=== PATIENT | female | born 1990 | race Caucasian/White ===

== ENCOUNTER 2024-04-16 14:57 | Emergency (ER) | payer OTHER, SELFPAY ==
--- NOTE | ~2024-04-16 | US_ITS ---
EXAMINATION: US OB <= 14 weeks fetus DATE: 04/16/2024 21:28 INDICATION: Vaginal bleeding. . TECHNIQUE: Real-time transabdominal pelvic ultrasound was performed. COMPARISON: None. FINDINGS: The uterus measures 12.3 x 8.2 x 9.3 cm. There is an intrauterine gestational sac. A yolk sac is iden tified. The crown rump length measures 3.5 cm, which correlates with an estimated gestational age of 10 weeks and 3 day(s) (+/-) 5 day(s). heart motion is identified measuring 171 beats per minute (bpm) by M-mode Doppler. There is a small subchorionic hematoma measuring 1.1 x 1.0 x 0.5 cm . The ovaries are not visualized. There is no free fluid in the pelvis. IMPRESSION: 1. Single living intrauterine gestation with estimated date of delivery of 11/09/2024. 2. Small subchorionic hematoma. Reviewed, dictated and finalized at location A. RVISOR HOUSECLEANER IMPRESSION: 1. Single living intrauterine gestation with estimated date of delivery of 10/25. 2. Small subchorionic hematoma.
[2024-04-16 15:01] VITALS: BP 145/92; PULSE 88; RESP 20; TEMP 36.9; O2SAT 99
[2024-04-16 15:15] LABS: Basophils Percent Auto 0.1 % (0.2-1.2); Eosinophils Percent Auto 0.4 % (0-4.4); Hematocrit 40.3 % (37.0-47.0); Hemoglobin 14.2 g/dL (12.0-15.0); Immature Granulocyte Absolute 0.03 K/mm3 (0.00-0.031); Immature Granulocyte Percent A 0.4 % (0-0.5); Lymphocytes Absolute Auto 2.18 K/mm3 (0.9-3.2); Lymphocytes Percent Auto 29.7 % (18.3-44.2); Mean Corpuscular HGB Conc 35.2 g/dl (32-36); Mean Corpuscular Hemoglobin 31.5 pg (26-34); Mean Corpuscular Volume 89.4 fl (80-100); Mean Platelet Volume 10.1 fl (7.4-10.4); Monocytes Absolute Auto 0.6 K/mm3 (0.1-0.6); Neutrophils Absolute Auto 4.5 K/mm3 (1.3-6.7); Neutrophils Percent Auto 61.4 % (45.5-73.1); Platelet Count Result 186 k/mm3 (150-375); Red Blood Count 4.51 M/mm3 (4.2-5.4); Red Cell Distribution Width 13.1 % (11.5-14.5); White Blood Count 7.4 K/mm3 (4.5-10.0)
[2024-04-16 15:27] LABS: INR 0.9; Prothrombin Time 12.4 Seconds (11.1-14.7)
[2024-04-16 15:28] LABS: Partial Thromboplastin Time 27.1 Seconds (22.3-36.8)
[2024-04-16 18:54] VITALS: BP 123/87; PULSE 94; RESP 18; TEMP 36.9; O2SAT 100
--- NOTE | 2024-04-16 19:54 | ED.PREGNANCY ---
HPI - General Chief complaint: Vaginal Bleeding Stated complaint: vag bleed-preg Time Seen by Provider: 04/16/24 19:40 Source: patient Mode of arrival: ambulatory Limitations: no limitations History of Present Illness HPI Narrative: Patient is a 33-year-old female who presents the ED with report of vaginal bleeding. Patient is and approximately 10 weeks gestation. Has had confirmed IUP. Sees Dr. Arevalo. Reports today around 230pm, she used the restroom and had a large amount of vaginal bleeding. She states since then she has had some brown vaginal spotting with wiping. She reports some intermittent lower abdominal cramping, denies significant pain. Reports intermittent nausea, denies vomiting. Denies fevers. Denies dysuria. Related Data Home Medications Medication Instructions Recorded Confirmed desvenlafaxine 50 mg 50 mg PO DAILY 03/17/24 04/14/24 tablet,extended release 24 hr Allergies Allergy/AdvReac Type Severity Reaction Status Date / Time Penicillins Allergy Severe Difficulty Verified 04/14/24 08:50 Breathing gabapentin Allergy Intermediate Vomiting Verified 04/14/24 08:50 Review of Systems Review of Systems: All systems reviewed & are unremarkable except as noted in HPI. All systems reviewed & are unremarkable except as noted in HPI and below PMFSH Past Medical History Medical History Allergies Anxiety Suppression of menses Family History Family History Mother Depression Asthma Father Depression Social History Social History Smoking status: Former smoker Alcohol intake: never Substance use: never Substance use type: does not use Do You Feel Safe in your Home?: Yes Lack of Transportation: No Lack of Food: Never True Current Housing: I Have Housing Concerned About Future Housing: No Difficulty Paying Gas/Electric Bills: No Difficulty Paying for Meds: No Currently Unemployed: No Education: Trade/Vocational Certificate Difficulty w/ Childcare or Family Care: No Living arrangements: with family Occupation/Education: unemployed Gender identity (if verbalized by the patient): Female Exam Narrative: GENERAL: Well appearing, well-nourished, non-toxic, in no acute distress. HEAD: Normocephalic, atraumatic. RESPIRATORY: Airway patent, respirations nonlabored. Clear to auscultation bilaterally, no rales, rhonchi, wheezing. CARDIOVASCULAR: Regular rate and rhythm without murmurs, rubs, or gallops. ABDOMINAL: Soft, mild tenderness throughout lower abdomen, worst in LLQ, nondistended. Normoactive BS. MUSCULOSKELETAL: Moves all extremities. No gross deformities. SKIN: Warm, dry, normal color. NEURO: A&O X3. Speech clear. PSYCHIATRIC: Appropriate mood and affect. Normal interaction. Course Vital Signs Vital signs: Vital Signs Temperature 98.5 F 04/16/24 15:01 Pulse Rate 88 04/16/24 15:01 Respiratory Rate 20 04/16/24 15:01 Blood Pressure 145/92 H 04/16/24 15:01 Pulse Oximetry 99 04/16/24 15:01 Temperature 98.2 F 04/16/24 22:14 Pulse Rate 92 04/16/24 22:14 Respiratory Rate 17 04/16/24 22:14 Blood Pressure 121/86 04/16/24 22:14 Pulse Oximetry 100 04/16/24 22:14 MDM - OB/Uterine Contractions MDM Narrative Medical decision making narrative: Vital signs are stable upon arrival. Patient reports bleeding is slowing down, now more of brown vaginal spotting. and 10 weeks. Confirmed IUP. Laboratory studies are reassuring. No leukocytosis. Stable H&H. Blood type is O positive, no indication for RhoGAM. Beta hcg [id number]. UA w/o evidence of infection. OB US obtained and showing live IUP, good FHT, does show small subchorionic hematoma. Likely cause of bleeding today. Discussed lab and imaging results, reassuring ultrasound with patient. Feel she is safe for discharge home at this time with close outpatient OB follow-up. Recommended follow-up in the office, pelvic rest, strict return precautions. She is in agreement with plan. Feels comfortable w/ D/C home. Discharged in stable condition. Medical Records Attestation: I reviewed the patient's medical records. Lab Data Attestation: I reviewed the patient's lab results. 04/16/24 15:09 04/16/24 19:42 Labs: Lab Results 11/21/24 11/21/24 11/21/24 Range/Units 15:09 19:42 21:37 WBC 7.4 (4.5-10.0) K/mm3 RBC 4.51 (4.2-5.4) M/mm3 Hgb 14.2 (12.0-15.0) g/dL Hct 40.3 (37.0-47.0) % MCV 89.4 (80-100) fl MCH 31.5 (26-34) pg MCHC 35.2 (32-36) g/dl RDW 13.1 (11.5-14.5) % Plt Count 186 (150-375) k/mm3 MPV 10.1 (7.4-10.4) fl Immature Gran % (Auto) 0.4 (0-0.5) % Neut % (Auto) 61.4 (45.5-73.1) % Lymph % (Auto) 29.7 (18.3-44.2) % Hayes % (Auto) 8.0 (2.6-8.5) % Eos % (Auto) 0.4 (0-4.4) % Baso % (Auto) 0.1 L (0.2-1.2) % Lymph # (Auto) 2.18 (0.9-3.2) K/mm3 Hayes # (Auto) 0.6 (0.1-0.6) K/mm3 Eos # (Auto) 0.0 (0-0.3) K/mm3 Baso # (Auto) 0.0 (0.0-0.1) K/mm3 Abs Immat Gran (auto) 0.03 (0.00-0.031) K/mm3 Absolute Neuts (auto) 4.5 (1.3-6.7) K/mm3 Absolute Nucleated RBC 0.000 (0.0-0.012) K/mm3 Nucleated RBC % 0.0 (0.0-0.2) % PT 12.4 (11.1-14.7) Seconds INR 0.9 APTT 27.1 (22.3-36.8) Seconds Sodium 135 L (137-145) mmol/L Potassium 3.6 (3.4-5.0) mmol/L Chloride 108 H (98-107) mmol/L Carbon Dioxide 21 L (22-30) mmol/L Anion Gap 6 (4-12) mmol/L BUN 7 (7-17) mg/dL Creatinine 0.50 L (0.7-1.0) mg/dL Estim Creat Clear Calc Not Reportable Estimated GFR > 60 (59 - ) Glucose 110 (65-110) mg/dL Calcium 8.6 (8.4-10.2) mg/dL Total Bilirubin 0.3 (0.2-1.3) mg/dL AST 21 (14-36) U/L ALT 13 (6-35) U/L Alkaline Phosphatase 55 (38-126) U/L Total Protein 7.0 (6.3-8.2) g/dL Albumin 3.6 (3.5-5.1) g/dL Beta HCG, Quant 724907.00 mIU/ML Urine Color Yellow (Yellow) Urine Appearance Clear (Clear) Urine pH 5.5 (5.0-9.0) Ur Specific [place] 1.026 (1.001-1.035) Urine Protein Negative (Negative) mg/dL Urine Glucose (UA) Trace H (Negative) mg/dL Urine Ketones Trace H (Negative) mg/dL Ur Blood (Man) 2+ H (Negative) Urine Nitrate Negative (Negative) Urine Bilirubin Negative (Negative) Urine Urobilinogen 0.2 (<2.0) mg/dL Leukocyte Esterase Rfl Negative (Negative) GEORGES/UL Urine RBC 3-5 H (0-2) /hpf Urine WBC 0-5 (0-3) /hpf Ur Squamous Epith Cells Occasional (Few) /hpf Urine Bacteria None seen /hpf Urine Casts 0-2 Blood Type O Positive Antibody Screen Negative Screen Not Reportable Baby's Blood Type Not Reportable Baby's JACLYN Not Reportable Doses of RhIg Required 0 Imaging Data Attestation: I personally reviewed and interpreted this imaging study as follows: Radiologist's impression: ITS Impressions Ultrasound 04/16/24 21:40 IMPRESSION: 1. Single living intrauterine gestation with estimated date of delivery of 11/09/2024. 2. Small subchorionic hematoma. Discharge Plan Discharge Clinical Impression: 10 weeks gestation of , Subchorionic hematoma Patient Disposition: Home, Self-Care Condition: Stable Instructions: Antibiotic Form, Subchorionic Hemorrhage (ED), at 7 to 10 Weeks (ED) Additional Instructions: Your ultrasound here was reassuring. It did show evidence of a subchorionic hematoma which is a small blood collection on the outside of the amniotic sac. Continue to monitor bleeding. Recommend pelvic rest until seen by OBGYN, no heavy lifting or strenuous activity, intercourse, tampons. Follow-up closely with your OBGYN for further evaluation. Return to the ED if you experience worsening or severe bleeding, severe pain, passing out, unable to keep down food or drink, or any other symptoms of concern. Prescriptions: No Action desvenlafaxine 50 mg tablet extended release 24 hr 50 mg PO DAILY ondansetron HCl 4 mg tablet 4 mg PO Q6H PRN (Reason: nausea and vomiting) Qty: 30 1RF Follow-up/Referrals: PHYSICIAN NOT ON STAFF,NONSTAFF [Non-Staff] - Gagan Arevalo MD [Physician] - (OBGYN) Time of Disposition: 22:05
[2024-04-16 19:58] LABS: Alanine Aminotransferase 13 U/L (6-35); Albumin Level 3.6 g/dL (3.5-5.1); Alkaline Phosphatase 55 U/L (38-126); Anion Gap 6 mmol/L (4-12); Aspartate Amino Transferase 21 U/L (14-36); Bilirubin,Total 0.3 mg/dL (0.2-1.3); Blood Urea Nitrogen 7 mg/dL (7-17); Calcium 8.6 mg/dL (8.4-10.2); Carbon Dioxide 21 mmol/L (22-30); Chloride 108 mmol/L (98-107); Estimated Glomerular Filt Rate > 60; Glucose 110 mg/dL (65-110); Potassium 3.6 mmol/L (3.4-5.0); Sodium 135 mmol/L (137-145)
[2024-04-16 21:50] LABS: Add Urine Microscopic? YES; Appearance Urine Clear (Clear); Bacteria Urine None Seen /hpf; Bilirubin Urine Negative (Negative); Blood Urine 2+ (Negative); Color Urine Yellow (Yellow); Glucose Urine UA Trace mg/dL (Negative); Ketones Urine Trace mg/dL (Negative); Leukocyte Esterase Ur Negative LEU/UL (Negative); Nitrate Urine Negative (Negative); Non Pathogenic Casts 0-2; Protein Urine Negative (Negative); Specific Grav Ur 1.026 (1.001-1.035); Squamous Epithelial Cell Urine Occasional /hpf (Few); Urobilinogen Urine 0.2 mg/dL (<2.0); WBC Urine 0-5 /hpf (0-3); pH Urine 5.5 (5.0-9.0)
[2024-04-16] MEDS: ACETAMINOPHEN 500 MG TABLET 1000 MG PO (22:05)
[2024-04-16 22:14] VITALS: BP 121/86; PULSE 92; RESP 17; TEMP 36.8; O2SAT 100
== END 2024-04-16 22:16 | disposition home or self-care (01) ==
PROVIDERS: Emergency Medicine; Emergency Provider Physician Assistant
DX: O20.8 Other hemorrhage in early pregnancy (principal); O99.341 Other mental disorders complicating pregnancy, first trimester; F41.9 Anxiety disorder, unspecified; Z87.891 Personal history of nicotine dependence; Z3A.10 10 weeks gestation of pregnancy
CPT/HCPCS: 36415; 76801; 80053; 81001; 84702; 85025; 85461; 85610; 85730; 86850; 86900; 86901; 99284; A9270

== ENCOUNTER 2024-05-05 09:59 | Outpatient (CLI) | payer OTHER, SELFPAY ==
--- NOTE | ~2024-05-05 | US_ITS ---
EXAMINATION: US OB <= 14 weeks fetus DATE: 05/05/2024 10:20 INDICATION: Subchorionic hematoma TECHNIQUE: Real-time pelvic ultrasound utilizing both a transvaginal and transabdominal probe was pe rformed. The interpreting radiologist was not present for the study. COMPARISON: None. FINDINGS: The uterus measures 14.5 x 8.1 x 12.0 cm. There is an intrauterine gestational sac. A yolk sac and f etal pole are identified. The crown rump length measures 7.2 cm, which is concordant within 2 days of the previously estimated gestational age of 13 weeks and 1 days. heart motion is identified me asuring 152 beats per minute (bpm) by M-mode Doppler. The placenta is posterior with a small internal anechoic placental sutherland. Increase in size of a now 4. 0 x 1.4 cm subchorionic hematoma along the cephalad margin of the placenta on the longitudinal images of the uterus. The placenta is low-lying with caudal margin extending to within 1 cm of the internal cervical os. Normal cervical length measures approximately 3.5 cm. The right ovary is not visualized. The left ovary measures 2.4 x 1.7 x 1.7 cm. Vascular flow identifi ed at the left ovary on color Doppler. There is no free fluid in the pelvis. IMPRESSION: 1. Single living fetus with heart rate of 152 bpm. 2. [place]-rump length of 7.2 cm which is concordant within 2 days of the previously estimated gestatio nal age of 13 weeks and 1 day with ultrasound estimated date of delivery (SAMUEL) of 11/09/2024. 3. Low-lying posterior placenta with caudal margin 1 cm from the internal cervical os and interval in crease in size of a still relatively small 4.0 x 1.4 cm subchorionic hematoma along the cephalad dameon in of the placenta. Reviewed, dictated and finalized at location A. EM SAFETY ENGINEER IMPRESSION: 1. Single living fetus with heart rate of 152 bpm. 2. [place]-rump length of 7.2 cm which is concordant within 2 days of the previou sly estimated gestational age of 13 weeks and 1 day with ultrasound estimated d ate of delivery (SAMUEL) of 11/09/2024. 3. Low-lying posterior placenta with caudal margin 1 cm from the internal cervi whitney os and interval increase in size of a still relatively small 4.0 x 1.4 cm s ubchorionic hematoma along the cephalad margin of the placenta.
== END 2024-05-05 10:00 | disposition home or self-care (01) ==
PROVIDERS: Visit Provider Student in an Organized Health Care Education/Training Program
DX: O26.851 Spotting complicating pregnancy, first trimester (principal); O41.8X10 Other specified disorders of amniotic fluid and membranes, first trimester, not applicable or unspecified; O46.8X1 Other antepartum hemorrhage, first trimester; Z3A.13 13 weeks gestation of pregnancy
CPT/HCPCS: 76801

== ENCOUNTER 2024-05-25 12:39 | Emergency (ER) | payer OTHER, SELFPAY ==
[2024-05-25 12:54] VITALS: BP 123/83; PULSE 89; RESP 16; TEMP 37.1; O2SAT 99
--- NOTE | 2024-05-25 13:16 | ED.URI ---
HPI - URI/Sore Throat General Chief Complaint: Upper Respiratory Infection Stated Complaint: Sinus Source: patient, RN notes reviewed and old records reviewed Mode of arrival: ambulatory Limitations: no limitations History of Present Illness HPI Narrative: Patient presents accompanied by her son. She is complaining of fever and productive cough that has been present for a couple of weeks, getting worse instead of better. She reports that fever has been intermittent over the past couple of days. She says she has not taken her temperature but believes this somewhere around 102. She reports the cough is minimally productive, wet sounding. She does report chills and sweats, particularly at night. She denies any respiratory distress. She is able speak in full sentence without difficulty. She does report lack of energy. Says she has been taking [id number] medications with minimal relief Related Data Home Medications ?Medication ?Instructions ?Recorded ?Confirmed ?Last Taken ?Type desvenlafaxine 50 mg 50 mg PO DAILY 03/17/24 05/12/24 Unknown History tablet,extended release 24 hr Allergies Allergy/AdvReac Type Severity Reaction Status Date / Time Penicillins Allergy Severe Difficulty Verified 05/25/24 12:50 Breathing gabapentin Allergy Intermediate Vomiting Verified 05/25/24 12:50 venom-wasp AdvReac Intermediate Other Verified 05/25/24 12:50 Review of Systems Review of Systems: All systems reviewed & are unremarkable except as noted in HPI and below Constitutional: Constitutional: Reports no additional constitutional complaints, Reports chills, Reports excessive sweating, Reports fever(s) and Reports lethargy ENT: Reports system reviewed and no additional complaints, except as documented Cardiovascular: Cardiovascular: Reports no additional cardiovascular complaints Respiratory: Respiratory: Reports no additional respiratory complaints, Reports change in phlegm color, Reports chest congestion, Reports excessive phlegm production and Reports pain with cough Gastrointestinal: Gastrointestinal: Reports no additional gastrointestinal complaints PMFSH Past Medical History Medical History (Updated 05/25/24 @ 13:36 by Josee Noel APRN) Autism Suppression of menses Anxiety Allergies Family History Family History Mother Depression Asthma Father Depression Social History Social History Smoking status: Former smoker Alcohol intake: never Substance use: never Substance use type: does not use Do You Feel Safe in your Home?: Yes Lack of Transportation: No Lack of Food: Never True Current Housing: Decline to Answer Concerned About Future Housing: Decline to Answer Difficulty Paying Gas/Electric Bills: Decline to Answer Difficulty Paying for Meds: Decline to Answer Currently Unemployed: Decline to Answer Education: Decline to Answer Difficulty w/ Childcare or Family Care: Decline to Answer Living arrangements: with family Occupation/Education: unemployed Gender identity (if verbalized by the patient): Female Comments At the time of my signature, I reviewed and agree with the nursing past medical, surgical, social, and family history. There is no relevant family history pertinent to the patient complaint. Exam Const: General: cooperative, no acute distress, alert and awake Orientation/consciousness: oriented to person, oriented to place and oriented to time HENMT: Head: normal to inspection Mouth: Yes moist mucous membranes Resp: Effort & Inspection: normal respiratory effort and able to speak in complete sentences Auscultation: clear to auscultation bilaterally, crackles on the right at the base, no rales, no rhonchi and no wheezes Cardio: Palpation: normal PMI Rate: regular rate Rhythm: regular rhythm Heart sounds: S1 normal heart sound present and S2 normal heart sound present Neuro: General: oriented to person, oriented to place and oriented to time Cranial nerves: Yes CN's II-XII intact bilaterally Psych: Appearance: grossly normal Thought process: Normal thought process present Insight: Good insight present (Psych) Judgement: Good judgement present (Psych) Course Course Level of Care: Express Care Visit Vital Signs Vital signs: Vital Signs Temperature 98.7 F 05/25/24 12:54 Pulse Rate 89 05/25/24 12:54 Respiratory Rate 16 05/25/24 12:54 Blood Pressure 123/83 05/25/24 12:54 Pulse Oximetry 99 05/25/24 12:54 Oxygen Delivery Room Air 05/25/24 12:54 Temperature 98.7 F 05/25/24 12:54 Pulse Rate 89 05/25/24 12:54 Respiratory Rate 16 05/25/24 12:54 Blood Pressure 123/83 05/25/24 12:54 Pulse Oximetry 99 05/25/24 12:54 Oxygen Delivery Room Air 05/25/24 12:54 Reviewed MDM - URI/Sore Throat MDM Narrative Medical decision making narrative: Patient with multiple sick children at home, 1 is with her today. She does have history and exam consistent with atypical pneumonia this prevalent within the community. Discharge instructions reviewed with patient, as well as provided in writing per nursing staff. The instructions also include specific and strict return/GO TO THE ER as well as f/u information. All questions have been answered, and the patient deny any further questions with discharge and discharge plan. Some parts of this dictation were generated by voice recognition software and may contain typographical and/or grammatical inaccuracies. Differential Diagnosis Differential diagnosis: Likely upper respiratory infection, otitis media, sinusitis, viral infection, bronchitis, influenza and pharyngitis Medical Records Attestation: I reviewed the patient's medical records. Discharge Plan Discharge Clinical Impression: Atypical pneumonia Patient Disposition: Home, Self-Care Condition: Stable Instructions: Antibiotic Form Additional Instructions: Take medication as prescribed. Follow with primary care provider. Emergency department for new or worse symptoms Patient Language: Chinese Prescriptions: New azithromycin 250 mg tablet See Rx Instructions .ROUTE .COMPLEX Qty: 6 0RF Rx Instructions: For 250 mg dose pack: take 500 mg today (day 1), then 250 mg for 4 days (days 2-5) No Action desvenlafaxine 50 mg tablet extended release 24 hr 50 mg PO DAILY ondansetron HCl 4 mg tablet 4 mg PO Q6H PRN (Reason: nausea and vomiting) Qty: 30 1RF Follow-up/Referrals: PHYSICIAN,SENIOR CLIENT ADVISOR [Primary Care Provider] - Time of Disposition: 13:36
== END 2024-05-25 14:00 | disposition home or self-care (01) ==
PROVIDERS: Emergency Provider Nurse Practitioner Family
DX: J18.9 Pneumonia, unspecified organism (principal); F84.0 Autistic disorder
CPT/HCPCS: 99213; G0463

== ENCOUNTER 2024-09-09 11:37 | Emergency (ER) | payer MEDICAID, SELFPAY ==
--- NOTE | 2024-09-09 11:40 | ED_ITS ---
HPI - URI/Sore Throat General Chief Complaint: Upper Respiratory Infection Stated Complaint: SORE THROAT/CONGESTION Time Seen by Provider: 09/09/24 11:40 Source: patient Mode of arrival: ambulatory Limitations: no limitations History of Present Illness HPI Narrative: Megan is a 34-year-old female patient presenting to the clinic today with complaints of sore throat and nasal congestion x3 days. She reports no known fevers, chills, body aches. Also reports feeling fatigued. She is 31 weeks . One of her sons has had strep. MD elicited complaint: sore throat and nasal congestion Related Data Home Medications ?Medication ?Instructions ?Recorded ?Confirmed ?Last Taken ?Type desvenlafaxine 50 mg 50 mg PO DAILY 03/17/24 09/01/24 Unknown History tablet,extended release 24 hr Allergies Allergy/AdvReac Type Severity Reaction Status Date / Time Penicillins Allergy Severe Difficulty Verified 09/09/24 11:55 Breathing gabapentin Allergy Intermediate Vomiting Verified 09/09/24 11:55 venom-wasp AdvReac Intermediate Other Verified 09/09/24 11:55 Review of Systems Review of Systems: Pertinent positives per HPI. Patient denies any fever, chills, rash, headache, visual changes, dizziness, cough, shortness of breath, chest pain, palpitations, nausea, vomiting, diarrhea, constipation, abdominal pain, or any urinary issues. [facility] Past Medical History Medical History Autism Suppression of menses Anxiety Allergies Family History Family History Mother Depression Asthma Father Depression Social History Social History Smoking status: Former smoker Alcohol intake: never Substance use: never Substance use type: does not use Do You Feel Safe in your Home?: Yes Lack of Transportation: No Lack of Food: Never True Current Housing: Decline to Answer Concerned About Future Housing: Decline to Answer Difficulty Paying Gas/Electric Bills: Decline to Answer Difficulty Paying for Meds: Decline to Answer Currently Unemployed: Decline to Answer Education: Decline to Answer Difficulty w/ Childcare or Family Care: Decline to Answer Living arrangements: with family Occupation/Education: unemployed Gender identity (if verbalized by the patient): Female Comments At the time of my signature, I reviewed and agree with the nursing past medical, surgical, social, and family history. There is no relevant family history pertinent to the patient complaint. Exam Narrative: General: Well-developed, obese, 31 weeks Head: Normocephalic, atraumatic Eyes: Pupils equally round and reactive to light bilaterally, EOM intact, sclera and conjunctive clear, no discharge, lids normal Ears: TMs intact and clear, ear canals clear, no drainage, grossly hearing normal. Nose: Nares patent, clear nasal discharge, no inflammation, no sinus tenderness. Mouth: Oral pharynx without lesions or masses, good dentition, MMM. Postnasal drip Neck: Supple, trachea midline, no enlargement of anterior or posterior cervical nodes, no thyroid masses or goiter palpable. Cardio: Regular rate and rhythm, s1 and s2 normal, no murmur appreciated. Resp: Clear to auscultation bilaterally, no rhonchi, rales, wheezing or rubs Course Course Emergency Course: Portions of this record may have been created with voice recognition software. Level of Care: Express Care Visit Vital Signs Vital signs: Vital Signs Temperature 36.8 C 09/09/24 11:58 Pulse Rate 104 H 09/09/24 11:58 Respiratory Rate 16 09/09/24 11:58 Blood Pressure 129/80 09/09/24 11:58 Pulse Oximetry 97 09/09/24 11:58 Temperature 36.8 C 09/09/24 11:58 Pulse Rate 104 H 09/09/24 11:58 Respiratory Rate 16 09/09/24 11:58 Blood Pressure 129/80 09/09/24 11:58 Pulse Oximetry 97 09/09/24 11:58 Vital signs reviewed MDM - URI/Sore Throat MDM Narrative Medical decision making narrative: At the time of visit patient is resting comfortably on the exam table. Patient appears to be nontoxic. Labs: Strep test was negative in the clinic today. We will send strep for culture. Plan: I suspect patient has URI/pharyngitis. Supportive measures were discussed with the patient and they voiced understanding discharge instructions and agrees to treatment plan. Return precautions reviewed Differential Diagnosis Differential diagnosis: Likely upper respiratory infection, otitis media, sinusitis, viral infection, bronchitis, influenza, pharyngitis and other (COVID) Lab Data Labs: Lab Results 09/09/24 Range/Units 12:05 POC Grp A Strep Screen Negative (Negative) Discharge Plan Discharge Clinical Impression: Upper respiratory infection Qualifiers: URI type: unspecified URI Qualified Code(s): J06.9 - Acute upper respiratory infection, unspecified Pharyngitis Qualifiers: Pharyngitis/tonsillitis etiology: unspecified etiology Qualified Code(s): J02.9 - Acute pharyngitis, unspecified Patient Disposition: Home Condition: Stable Instructions: Antibiotic Form, Pharyngitis (ED), Cold Symptoms (ED) Additional Instructions: Strep test was negative in the clinic today. We will send strep for culture. Increase fluids and stay well hydrated Tylenol for pain/fever Flonase and OTC antihistamines as directed Vicks vapor rub to open sinuses Sinus rinses for congestion Cepacol spray, cough drops, throat lozenges, warm tea with honey/lemon, gargle salt water to soothe throat BRAT diet for diarrhea Clear liquids x 24 hours then advance as tolerated for nausea/vomiting Go to the ED if you develop a worsening in your condition- high fever not controlled by Tylenol or Motrin, dehydration, weakness, lethargy, shortness of breath, or chest pain. Follow up with your PCP in 3-5 days if symptoms persist. Approved Medications for Patients Cold and Flu Symptoms --Tylenol (regular or extra Strength) Fever (call if over 101?)--Tylenol (regular or extra Strength) Nasal Drainage/Head Congestion--Chlor-Trimeton, Sudafed, Tavist,Tylenol Sinus Cough--Robitussin, Delsym, Mucinex Sore Throat--Chloraseptic, Cepacol lozenges Allergy Symptoms--Benadryl, Zyrtec, Zyrtec D, Claritin, Claritin D Nausea--Emetrol, Vitamin B6 Tablets, Michelle, Michelle Tea, Preggie Pops, B- Suckers Constipation--Milk of Magnesia, Metamucil, Fiberall, Konsyl, Colace (Docusate Sodium) Diarrhea--Imodium, Kaopectate, Follow BRAT diet: bananas, rice, applesauce, tea/toast Heartburn--Maalox, Mylanta, TUMS, Prilosec OTC, Zantac, Tagament, Prevacid, Pepcid Hemorrhoids--Tucks Pads, Anusol, Preparation H, warm sitz baths Patient Language: Croatian Prescriptions: No Action desvenlafaxine 50 mg tablet extended release 24 hr 50 mg PO DAILY Follow-up/Referrals: Patrick Uriarte MD [Primary Care Provider] - Time of Disposition: 12:15 Quality NIHSS Nursing Documentation ED NIHSS nursing documentation: reviewed/agree
[2024-09-09 11:58] VITALS: BP 129/80; PULSE 104; RESP 16; TEMP 36.8; O2SAT 97
[2024-09-09 12:07] LABS: EDSTREPNEGPOS1 Negative (Negative)
== END 2024-09-09 12:15 | disposition home or self-care (01) ==
PROVIDERS: Emergency Provider Nurse Practitioner Family; PCP Obstetrics & Gynecology
DX: O99.513 Diseases of the respiratory system complicating pregnancy, third trimester (principal); Z3A.31 31 weeks gestation of pregnancy; J06.9 Acute upper respiratory infection, unspecified; J02.9 Acute pharyngitis, unspecified; O99.343 Other mental disorders complicating pregnancy, third trimester; F84.0 Autistic disorder; Z87.891 Personal history of nicotine dependence
CPT/HCPCS: 87081; 87880; 99213; G0463

== ENCOUNTER 2024-09-10 14:58 | Outpatient (CLI) | payer MEDICAID, SELFPAY ==
--- OUTSIDE RECORDS SUMMARY | 2024-09-10 15:09 | XMS_ITS | Referral Summary ---
Author Organization [facility] Healthcare Address [address] [place] [address] Care Team Providers Care Acetylene Cutter Name Role Phone No, Physician Primary Care Provider [phone] Social History Tobacco Use Types Packs/Day Years Used Date Smoking Tobacco: Never Assessed Personal Safety Answer Date Recorded Getting School Help Needed Not on file 03/24 Comments Unknown Sex and Gender Information Value Date Recorded Sex Assigned at Not on file Legal Sex Female 9:58 AM CDT Gender Identity Not on file Sexual Orientation Not on file Plan of Treatment Not on file Insurance [employer] EDMONDSON ASO [employer] PPO Care Teams Acetylene Cutter Relationship Specialty Start Date End Date No, Physician PCP - General 03/24/24
--- OUTSIDE RECORDS SUMMARY | 2024-09-10 15:09 | XMS_ITS | Clinical Summary ---
Author Organization [facility] Healthcare Address [address] [place] [id number] Care Team Providers Care Training Officer Name Role Phone No, Physician Primary Care Provider [phone] Social History Tobacco Use Types Packs/Day Years Used Date Smoking Tobacco: Never Assessed Personal Safety Answer Date Recorded Getting School Help Needed Not on file 03/24 Comments Unknown Sex and Gender Information Value Date Recorded Sex Assigned at Not on file Legal Sex Female 9:58 AM CDT Gender Identity Not on file Sexual Orientation Not on file Plan of Treatment Health Maintenance Due Date Last Done Comments Cervical Cancer Screening 1991 Depression Screening 1991 Hepatitis C Screening 1991 DTaP/Tdap/Td Vaccine (1 - Tdap) 07/29/2002 Varicella Vaccines (1 of 2 - 13+ 2-dose series) 07/29/2004 Hepatitis B Screening 07/29/2009 Regular Well Visit/Exam 18-64 07/29/2009 Influenza Vaccine (#1) 2024 HPV Vaccines Aged Out No longer eligi ble based on patient's age to complete this topic Pneumococcal vaccine <65 Aged Out No longer eligible based on patient's age to complete this topic Insurance KP EDMONDSON ASO [facility] PPO Care Teams Training Officer Relationship Specialty Start Date End Date No, Physician PCP - General 03/24/24
--- OUTSIDE RECORDS SUMMARY | 2024-09-10 15:09 | XMS_ITS | Clinical Summary ---
Author Organization [facility] Address [address] [place] [address] Care Team Providers Care Candle Pourer Name Role Phone Unavailable Primary Care Provider Unavailabl e Source Comments [facility],non-owned Affiliates and Associated Physician Practices is amultiple site organization consisting of ambulatory clinics and hospital sitesin [place], [place], [place] and [place]. This disclosure is being madepursuant to the Care Everywhere program and may not contain all information available regarding this patient. Last updated 18.[facility] Allergies Active Allergy Reactions Criticality Noted Date Comments Gabapentin Unknown 06/19/2024 Penicillins Unknown 06/19/2024 Wasp Venom Unknown 06/19/2024 Medications * Be aware that medications may not be up to date on this document. Alwaysverify current medications with the patient. desvenlafaxine succinate ER 24hr (Pristiq) 50 MG tablet Take 1 (one) tablet by mouth once daily Active Vit-DSS-Fe Fum-FA ( vitamin with iron) tabletIndicatio ns: Take 1 (one) tablet by mouth once daily Reasons: Active ondansetron (Zofran) 4 MG tabletIndicatio ns:Nausea and/or Vomiting in Take 1 (one) tablet by mouth every 6 hours as needed for Nausea/Vomitin g Reasons: Nausea and Vomiting in Active Encounters Date Type Department Care Team Description 08/24/2024 Orders Only [facility] [address] [place] [id number] Gladys Fung RN 07/29/2024 Orders Only [facility] [address] [place] [address] Gladys Fung RN Previous child with congenital anomaly, currently , antepartum, single or unspecified fetus; Fourth ; Autism disorder 07/06/2024 Orders Only [facility] [address] [place] [id number] Gladys Fung RN 06/24/2024 10:45 AM MALTED MILK MIXER - 06/24/2024 11:59 PM MALTED MILK MIXER Hospital Encounter [facility] [address] [place] [address] Willem Rodgers MD Discharge Disposition: Home or Self Care 06/24/2024 10:33 AM MALTED MILK MIXER - 06/24/2024 10:44 AM MALTED MILK MIXER Hospital Encounter [facility] [address] [place] [address] Willem Rodgers MD Discharge Disposition: Home or Self Care 06/24/2024 10:30 AM MALTED MILK MIXER - 06/24/2024 10:32 AM MALTED MILK MIXER Hospital Encounter [facility] [address] [place] [address] Willem Rodgers MD Discharge Disposition: Home or Self Care 06/23/2024 Telephone [facility] [address] [place] [id number] Gladys Fung RN Future Appointment (Called patient to see if she has access to her son's prader will genetic records. Patient will try to pull up on provider gardenia. /) from Last 3 Months Family History * Patient is adopted Medical History Relation Name Comments Cancer - Cervical Mother ADD/ADHD Son 1 Autism Spectrum Disorder Son 1 Other - Genetic Son 2 ADD/ADHD half-brother 1 ADD/ADHD half-brother 2 Relation Name Status Comments Daughter Alive Mother Other 1 Fetus - In Utero Other 2 Alive normal karyotyp e Other 3 Alive Other 4 Alive Other 5 Alive Other 6 Alive Other 7 Alive Son 1 Alive Son 2 Alive Prader Willi Sy ndrome half-brother 1 Alive half-brother 2 Alive Social History Tobacco Use Types Packs/Day Years Used Date Smoking Tobacco: Former Cigarettes Smokeless Tobacco: Never Tobacco Cessation:Counseling Given: Not Answered Alcohol Use Standard Drinks/Week Comments Not Currently 0 (1 standard drink = 0.6 oz pur e alcohol) Estimated Date of Delivery Comme nts Yes 11/09/2024 Based on Ultraso und Sex and Gender Information Value Date Recorded Sex Assigned at Not on file Legal Sex Female 9:00 AM MALTED MILK MIXER Gender Identity Not on file Sexual Orientation Not on file Last Filed Vital Signs Vital Sign Reading Time Taken Comments Blood Pressure 107/75 06/24/2024 11:21 AM MALTED MILK MIXER Pulse 101 06/24/2024 11:21 AM MALTED MILK MIXER Temperature - - Respiratory Rate - - Oxygen Saturation - - Inhaled Oxygen Concentration - - Weight 93.4 kg (206 lb) 06/24/2024 11:21 AM MALTED MILK MIXER Height 165.1 cm (5' 5 ) 06/24/2024 11:21 AM MALTED MILK MIXER Body Mass Index 34.28 06/24/2024 11:21 AM MALTED MILK MIXER Plan of Treatment Health Maintenance Due Date Last Done Comments PAP SMEAR 1991 HIV SCREENING 07/29/2006 DTAP/TDAP/TD VACCINES (1 - Tdap) 07/29/2010 HEPATITIS B VACCINE (1 of 3 - 19+ 3-dose series) 07/29/2010 COVID-19 VACCINE ( - 2023-2 5 season) 2024 DEPRESSION SCREENING 05/27/2024 OB-ONE HOUR GLUCOSE 08/03/2024 OB-TDAP CURRENT 08/10/2024 OB-RHOGAM INJECTION 08/17/2024 INFLUENZA VACCINE (Season Ended) 2025 03/10/2018 ZOSTER VACCINE (1 of 2) 07/29/2041 HEPATITIS C SCREENING Completed 03/27/2024 , 06/24/2020 HIB VACCINE Aged Out No longer eligi ble based on patient's age to complete this topic HPV VACCINE Aged Out No longer eligi ble based on patient's age to complete this topic MENINGOCOCCAL (Group B) VACCINE SHARED DECISION-MAKING Aged Out No longer eligible based on patient's age to complete this topic MENINGOCOCCAL GROUPS A/C/Y/W VACCINE Aged Out No longer eligible b ased on patient's age to complete this topic PNEUMOCOCCAL VACCINE Aged Out No long er eligible based on patient's age to complete this topic Respiratory Syncytial Virus (RSV) Vaccine Pt: or over 60 yrs (No Doses Required) Completed Procedures Procedure Name Priority Date/Time Associated Diagnosis Comments FRAGILE X SCRN W/ REFLEX 06/24/2024 1:12 PM MALTED MILK MIXER SONOGRAM - COMPLETE Routine 06/24/2024 1 0:43 AM MALTED MILK MIXER Previous child with congenital anomaly, currently , antepartum, single or unspecified fetus Encounter for anatomic survey from Last 3 Months Results * FRAGILE X SCRN W/ REFLEX (06/24/2024 1:12 PM MALTED MILK MIXER) Fragile X PCR NEGATIVE [facility] Comment: RESULT: FEMALE, 31 and 36 CGG REPEATS (NEGATIVE) Interpretation: The status of the Fragile X locus (FMR1) was determined by PCR analyses, using DNA isolated from a blood specimen. This individual carries two FMR1 alleles in the normal size range with approximately 31 and 36 CGG repeats. Analysis of X and Y chromosome specific sequences was consistent with a sample from a female individual. The triplet primed PCR revealed no expanded alleles. This assay cannot rule out the possibility of a point mutation or gene rearrangement causing Fragile X syndrome in this patient. BACKGROUND: Fragile X syndrome (FXS) is caused by mutations in the Fragile X Mental Retardation 1 (FMR1) gene. The vast majority of cases are caused by the expansion of a polymorphic CGG trinucleotide repeat in the 5'-untranslated region of the FMR1 gene. Expansions in the full mutation size range (see below) cause hypermethylation of the FMR1 gene, leading to the loss of FMR1 gene activity and absence of FMR1 protein (FMRP). The normal and expanded size ranges of the FMR1 CGG trinucleotide repeat are as follows: 5-44 (normal), 45-54 (gloria zone), 55-200 (premutation), and greater than approximately 200 (full mutation, affected). The distinction between these ranges is not absolute. Furthermore, premutation carriers over the age of 50 years, particularly males, are at-risk to be affected by a tremor and movement disorder known as Fragile X-associated tremor/ataxia syndrome (FXTAS) (Am J Hum Lamar (2003) 72:869-78). In addition, approximately 20% of female premutation carriers are affected by primary ovarian insufficiency (POI) before the age of 40 years (Am J Med Lamar (2000) 97:189-94). METHODOLOGY: Testing is initially performed using two fluorescent polymerase chain reaction (PCR) assays. In one assay, the FMR1 CGG repeat region is amplified using a conventional PCR reaction in order to determine the size of the CGG repeat. A chromosome specific region of the amelogenin gene, which is located on both the X and Y chromosomes, is co-amplified to provide gender information. The other assay is a triplet primed PCR reaction that is performed to detect CGG repeat expansions that are too large to be amplified in a conventional PCR reaction. Fluorescent amplification products are detected by automated capillary electrophoresis. Samples that are positive for an FMR1 CGG repeat in the premutation (>85 repeats) and/or full mutation size range are further analyzed by a methylation PCR assay to provide information on the size and methylation status of the FMR1 CGG repeat. In the methylation PCR assay, fluorescent amplification products from genomic DNA digested with a methylation-sensitive restriction enzyme are compared to those obtained from undigested genomic DNA to determine the extent of methylation of the FMR1 CGG repeat. Health care providers, please contact your local [facility] genetic counselor or call [facility] at [email or web address] ([phone]) for assistance with interpretation of these results. LIMITATIONS: This assay evaluates only the FMR1 CGG repeat. It cannot detect other, rare FMR1 mutations (e.g., deletions, insertions, point mutations) that cause Fragile X syndrome, and cannot detect chromosomal abnormalities. In addition, this assay may not detect a low level of mosaicism for an FMR1 allele in the premutation or full mutation size ranges. Some individuals with mental retardation, who do not have Fragile X syndrome, may have chromosomal abnormalities that can be identified by cytogenetic analysis or other genetic tests. If Fragile X syndrome testing was negative for this patient, cytogenetic studies or additional genetic testing may be appropriate. Clinical correlation is recommended. A portion of the testing was performed at [facility]. Laboratory results and submitted clinical information reviewed by Theresa Sánchez, Ph.D., [facility], [facility]. FMR1 Methylation Analysis [facility] Comment: Test Not Performed. Reflex testing not required. Test Performed at: [facility] [address] [place] [address] INDU FRENCH MD,PHD,SALVADOR 06/24/2024 1:12 PM MALTED MILK MIXER 06/24/2024 1:12 PM MALTED MILK MIXER us Willem Rodgers MD LAB - CHEMISTRY ORDERABLES Final Result [facility] [id number] [place] [address] * SONOGRAM - COMPLETE (06/24/2024 10:43 AM MALTED MILK MIXER) Linked Results Indication ======== Anatomy Screen Family history (son) Prader Willi Syndrome (PWS) Maternal autism, ADHD & PTSD on venlafaxine, Obesity class I History ====== OB History 4. Para 3 [id number] 1. live 2015. Gest. age 39 w + 0 d. Weight 3,345 g. Sex of child: female. Details: 2. live 2018. Gest. age 39 w + 0 d. Weight 3,968 g. Sex of child: male. Details: 3. live 2020. Gest. age 39 w + 0 d. Weight 2,891 g. Sex of child: male. Details: Maternal Assessment Physical Exam Height 165 cm, 5 ft 5 in. Weight 93 kg, 206 lb. Initial weight 92 kg, 203 lb. BMI 34.28 kg/m . Initial BMI 33.78 kg/m . Weight gain 1 kg, 3 lb Method ====== Transabdominal and transvaginal ultrasound. View: Good view ========= Juarez . Number of fetuses: 1 Dating ====== Date Details Gest. age SAMUEL Stated SAMUEL 20 w + 2 d 11/09/2024 U/S 06/24/2024 based upon AC, BPD, Femur, HC 20 w + 2 d 11/09/2024 Assigned dating based on stated SAMUEL, selected on 06/24/2024 20 w + 2 d 11/09/2024 General Evaluation Cardiac activity present. Presentation: cephalic Placenta: Placental site: posterior Umbilical cord: Cord vessels: 3 vessel cord. Insertion site: normal insertion Amniotic fluid: Amount of AF: normal. MVP 5.4 cm Biometry BPD 46.5 mm 20w 0d 40% Hadlock HC 182.0 mm 20w 4d 56% Hadlock Cerebellum tr 21.4 mm 76% [place] Nuchal fold 4.4 mm AC 150.7 mm 20w 2d 45% Hadlock Femur 33.2 mm 20w 3d 46% Hadlock Humerus 32.8 mm 21w 0d 79% Elissa HC / AC 1.21 15w 3d 81% Hadlock Weight Calculation: EFW 349 g 49% Hadlock EFW (lb,oz) 0 lb 12 oz EFW by Hadlock ([id number]) Head / Face / Neck Biometry: CM 4.7 mm 36% Nicolaides appropriate Growth Overview Exam date GA BPD (mm) HC (mm) AC (mm) FL (mm) HL (mm) EFW (g) 06/24/2024 20w 2d 46.5 40% 182 56% 150.7 45% 33.2 46% 32.8 79% 349 49% Anatomy The following structures appear normal: Head / Neck Cranium. Lateral ventricles. Choroid plexus. Midline falx. Cavum septi pellucidi. Cerebellum. Cisterna magna. Face Lips. Profile. Nose. Orbits. Heart / Thorax 4-chamber view. RVOT view. LVOT view. 3-vessel view. 4-hcycwm-fhsnyeq view. Situs. Aortic arch view. Bicaval view. Ductal arch view. Great vessels. Right lung. Left lung. Diaphragm. Abdomen Cord insertion. Stomach. Kidneys. Bladder. Genitals. Spine Cervical spine. Thoracic spine. Lumbar spine. Sacral spine. Extremities / Skeleton Arms. Hands. Legs. Feet. sex: female. Maternal Structures Cervix reassuring Approach - Transvaginal: Cervical length 4.00 cm Right Ovary Not visualized Left Ovary Not visualized Impression ========= * Juarez IUP at 20 weeks of gestation by stated EDC from early U/S * Referred to [facility] for obstetrical U/S & request for consult secondary to: Family history of Prader Willi Syndrome * Today's ultrasound (U/S) findings: Living juarez intrauterine fetus growth is in the normal range Amniotic fluid volume appears normal Comprehensive anatomic survey appears normal Endovaginal U/S was performed to better assess cervix & placenta Functional cervical length is normal-range Placenta is posterior clear of the internal cervical os by > 2 cm COUNSELING & RECOMMENDATIONS (PLEASE SEE FULL CONSULT IN EPIC) * Please see the separate Genetics consult note from today With family h/o autism, have offered Fragile X carrier screening She is not interested in genetic testing options * She relates PTSD relating to her G3 ; advised to further d/w her OB * Follow-up U/S for growth at 32 weeks * testing (e.g. NST+BPP or NST+WILL) if later indicated * Delivery planning (timing, mode, location): too early to determine at present Follow-up ======== U/S at 32 weeks Coding ====== Procedures 55170: US Preg Uterus Detailed [id number]: US Preg Uterus Transvaginal [facility] PACS Anatomical Region Laterality Modality Other 06/24/2024 10:4 3 AM MALTED MILK MIXER Carla Eng MD [facility] ORDERABLES Edited Result - Final from Last 3 Months Insurance [employer]
[2024-09-10 16:35] LABS: Hematocrit 33.3 % (37.0-47.0); Hemoglobin 10.8 g/dL (12.0-15.0); Mean Corpuscular HGB Conc 32.4 g/dl (32-36); Mean Corpuscular Volume 89.3 fl (80-100); Mean Platelet Volume 10.2 fl (7.4-10.4); Platelet Count Result 186 k/mm3 (150-375); Red Blood Count 3.73 M/mm3 (4.2-5.4); Red Cell Distribution Width 13.6 % (11.5-14.5); White Blood Count 9.2 K/mm3 (4.5-10.0)
[2024-09-10 16:42] LABS: Glucose 1 Hour PP 50gm Dose 108 mg/dL
[2024-09-10 17:20] LABS: Syphilis IgG/IgM Antibody Negative (Negative)
[2024-09-10 20:46] LABS: HIV 1/2 Ab P24 Ag Result Negative (Negative)
== END 2024-09-10 14:59 | disposition home or self-care (01) ==
LOC: ANHLAB 14:59
PROVIDERS: PCP Obstetrics & Gynecology; Visit Provider Student in an Organized Health Care Education/Training Program
DX: Z34.90 Encounter for supervision of normal pregnancy, unspecified, unspecified trimester (principal); Z3A.00 Weeks of gestation of pregnancy not specified
CPT/HCPCS: 36415; 82947; 85027; 86593; 86703; G0432

== ENCOUNTER 2024-09-16 14:19 | Outpatient (CLI) | payer MEDICAID, SELFPAY ==
--- NOTE | ~2024-09-16 | US_ITS ---
EXAM EXAMINATION: US OB follow up DATE: 09/16/2024 15:40 CDT INDICATION: Growth scan COMPARISON: 06/26/2024 and 05/26/2024 TECHNIQUE: Real-time transabdominal obstetric ultrasound. FINDINGS: 4 para 3. There is a single intrauterine gestation in vertex presentation. The placenta is posterior The cervix measures 2.5 cm in length on the submitted images. The tip of the placenta measures 5.4 cm from the cervix. cardiac activity and movement is noted with a heart rate of 131 beats per minute. Amniotic fluid index measures 12.1 cm The following biometric data were obtained: Biparietal diameter (BPD): 8.2 cm; head circumference (HC): 31.2 cm; abdominal circumference (AC): 27.4 cm; Or femur length (FL): 5.8 cm. These measurements are concordant. Estimated weight is 1784 g +/- 268 g, which correlates with the 18th percentile when 11/08/2024 is used as estimated date of delivery. As single measurements, these parameters are each equal to the following estimated gestational ages: BPD: 32 weeks 6 days. HC: 34 weeks 6 days. AC: 31 weeks 3 days. FL: 30 weeks 2 days. estimated gestational age based solely on measurements from this exam is 32 weeks 3 days +/- 2 weeks 2 days. IMPRESSION: Single intrauterine gestation in vertex presentation with cardiac activity identified. The posterior placenta measures 5.4 cm from the cervix on the submitted images Cervical length is 2.5 cm. Estimated weight is within the 18th percentile Reviewed, dictated and finalized at location A. IMPRESSION: Single intrauterine gestation in vertex presentation with cardiac activit y identified. The posterior placenta measures 5.4 cm from the cervix on the submitted images Cervical length is 2.5 cm. Estimated weight is within the 18th percentile
== END 2024-09-16 14:20 | disposition home or self-care (01) ==
LOC: MICIMG 14:20
PROVIDERS: PCP Student in an Organized Health Care Education/Training Program; Visit Provider Student in an Organized Health Care Education/Training Program
DX: Z34.93 Encounter for supervision of normal pregnancy, unspecified, third trimester (principal); Z3A.32 32 weeks gestation of pregnancy
CPT/HCPCS: 76816